=== PATIENT | male | born 1980 | race African-American/Black ===

== ENCOUNTER 2017-12-21 03:55 | Emergency (ER) | payer OTHER ==
[2017-12-21] MEDS ORDERED: KETOROLAC TROMETHAMINE 30 MG/1 ML VIAL IVPUSH ONE (04:12)
[2017-12-21] MEDS ORDERED: METOCLOPRAMIDE HCL INJECTION 10 MG/2 ML VIAL IVPUSH ONE (04:12)
[2017-12-21 04:13] VITALS: BP 130/90; PULSE 97; TEMP 97.9; BMI 23.6
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
[2017-12-21] MEDS ORDERED: KETOROLAC TROMETHAMINE 30 MG/1 ML VIAL ONE (04:31)
[2017-12-21] MEDS ORDERED: METOCLOPRAMIDE HCL INJECTION 10 MG/2 ML VIAL ONE (04:31)
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
== END 2017-12-21 05:14 | disposition home or self-care (01) ==
LOC: JER 03:55
PROC: 3E0333Z Introduction of Anti-inflammatory into Peripheral Vein, Percutaneous Approach (ICD-10-PCS; principal; 2017-12-21)
PROC: 3E033GC Introduction of Other Therapeutic Substance into Peripheral Vein, Percutaneous Approach (ICD-10-PCS; 2017-12-21)
DX: G43.909 Migraine, unspecified, not intractable, without status migrainosus (principal)
CPT/HCPCS: 96374; 96375; 99281-25